=== PATIENT | male | born 1960 | race Caucasian/White ===

== ENCOUNTER 2016-12-11 14:44 | Emergency (ER) | payer OTHER ==
[~2016-12-11] VITALS: Ht 187.9 cm; Wt 74.8 kg
[~2016-12-11 14:44] MED LIST: ASPIRIN81 M1 PO; CLINDAMYCIN HC300 MG PO; DIGOX0.25 MG PO; EFFIENT5 MG PO; LIPITOR10 MG PO
[2016-12-11] MEDS ORDERED: Peridex 473 ML473 ML PO (14:58)
[2016-12-11] MEDS ORDERED: LIDOCAINE HCL100 M1 MM (14:58)
[2016-12-11] MEDS ORDERED: NAPROSYN500 MG PO (14:58)
[2016-12-11] MEDS ORDERED: CLINDAMYCIN150 MG PO (14:58)
== END 2016-12-11 15:03 | disposition home or self-care (01) ==
LOC: ED 14:44
DX: K02.9 Dental caries, unspecified (principal); R03.0 Elevated blood-pressure reading, without diagnosis of hypertension; F17.200 Nicotine dependence, unspecified, uncomplicated; Z79.82 Long term (current) use of aspirin; Z88.0 Allergy status to penicillin

== ENCOUNTER 2018-10-23 18:42 | Emergency (ER) | payer SELFPAY ==
--- NOTE | ~2018-10-23 | EKG ---
[place], [place] ELECTROCARDIOGRAM REPORT NAME: MEI RIZO UNIT #: [id number] ROOM: DOCTOR: EPIPHANY DRAFT REPORT BIRTHDATE: [birth year] [facility] Test Date: 2018-10-23 Test Time: 19:27:34 Pat Name: EMI RIZO Department: Room: Gender: Cad Administrator: JUDY : 1960 Requested By: ADILSON GAXIOLA Order Number: [id number] Reading MD: Patsy Rosen MD Measurements Intervals [place] Rate: 80 P: 72 TX: 156 QRS: -71 QRSD: 114 T: 88 QT: 372 QTc: 430 Interpretive Statements Sinus rhythm Left anterior fascicular block Lateral infarct, age indeterminate Probable anteroseptal infarct, recent Electronically Signed On 10-25-2018 14:13:42 PST by Patsy Rosen MD CM:EKGRPT:ELECTROCARDIOGRAM REPORT [id number] ADILSON GAXIOLA EPIPHANY DRAFT REPORT ADILSON GAXIOLA
[~2018-10-23 18:42] MED LIST changes: +CLINDAMYCIN150 MG PO; +LIDOCAINE HCL100 M1 MM; +NAPROSYN500 MG PO; +Peridex 473 ML473 ML PO
[2018-10-23] MEDS ORDERED: FLONASE ALLERG9.9 ML NAS (19:09)
[2018-10-23] MEDS ORDERED: PREDNISONE10 MG PO (19:09)
[2018-10-23] MEDS ORDERED: CLARITIN10 MG PO (19:09)
== END 2018-10-23 19:54 | disposition left against medical advice (07) ==
LOC: ED 18:42
DX: H92.02 Otalgia, left ear (principal); R03.0 Elevated blood-pressure reading, without diagnosis of hypertension; Z88.0 Allergy status to penicillin

== ENCOUNTER 2024-04-01 12:15 | Emergency (ER) | payer SELFPAY ==
[~2024-04-01] VITALS: Ht 187.9 cm; Wt 90.7 kg
[~2024-04-01 12:15] MED LIST changes: +CLARITIN10 MG PO; +FLONASE ALLERG9.9 ML NAS; +PREDNISONE10 MG PO
[2024-04-01] MEDS ORDERED: ATORVASTATIN CA40 M1 PO (13:04)
[2024-04-01] MEDS ORDERED: POTASSIUM CHLO20 ME4 PO (13:04)
[2024-04-01] MEDS ORDERED: METOPROLOL SUCC25 M2 PO (13:05)
[2024-04-01] MEDS ORDERED: ELIQUIS5 M1 PO (13:06)
[2024-04-01] MEDS ORDERED: FARYDAK10 MG PO (13:07)
[2024-04-01] MEDS ORDERED: FARXIGA10 M1 PO (13:08)
[2024-04-01] MEDS ORDERED: MELOXICAM15 MG PO (13:19)
[2024-04-01] MEDS ORDERED: CLINDAMYCIN HC300 MG PO (13:19)
[2024-04-01] MEDS ORDERED: CLINDAMYCIN HCL 300 MG CAPSULE PO ONE (13:20)
[2024-04-01] MEDS ORDERED: Acetaminophen/Oxycodone 5 MG/325 MG TABLET PO ONE (13:20)
== END 2024-04-01 13:35 | disposition home or self-care (01) ==
LOC: ED 12:15
DX: K04.7 Periapical abscess without sinus (principal); K02.9 Dental caries, unspecified; I25.2 Old myocardial infarction; F17.290 Nicotine dependence, other tobacco product, uncomplicated; Z88.0 Allergy status to penicillin; Z98.890 Other specified postprocedural states